=== PATIENT | female | born 1945 | race African-American/Black ===

== ENCOUNTER 2024-06-19 09:45 | Emergency (ER) | payer OTHER ==
[2024-06-19 10:12] VITALS: BMI 25.0
[2024-06-19 10:52] LABS: BASO % 1.2 % (0-2.0); EOS % 0.9 % (0-4.5); HEMATOCRIT 21.2 % (32.4-45.2); LYMPH % 18.4 % (8-40); MCH 27.4 pg (25.7-33.7); MCHC 33.2 g/dl (32.0-36.0); MEAN CELL VOLUME 82.5 fl (80-96); MEAN PLT VOLUME 6.1 fl (7.5-11.1); MONO % 15.3 % (3.8-10.2); NEUT % 64.2 % (42.8-82.8); PLATELET COUNT 606 10^3/uL (134-434); RBC 2.57 M/mm3 (3.60-5.2); WHITE BLOOD COUNT 4.9 K/mm3 (4.0-10.0)
[2024-06-19] MEDS ORDERED: ACETAMINOPHEN INJECTION 100 ML ONE (11:06)
[2024-06-19] MEDS: ACETAMINOPHEN 1000 MG/100 ML BAG IVPB ONE (11:10)
[2024-06-19 11:14] LABS: ACTIVATED PTT 36.6 SECONDS (25.2-36.5); INR 1.12 (0.83-1.09); PROTHROMBIN TIME (PATIENT) 12.2 SEC (9.7-13.0)
[2024-06-19 11:44] LABS: POTASSIUM 4.1 mmol/L (3.5-5.1)
[2024-06-19 11:48] LABS: ALBUMIN 2.9 g/dl (3.4-5.0); CALCIUM 9.6 mg/dL (8.5-10.1)
[2024-06-19 11:52] LABS: CREATININE 0.7 mg/dL (0.55-1.3)
[2024-06-19 11:53] LABS: BILIRUBIN,TOTAL 0.7 mg/dL (0.2-1); TOT PROT 6.9 g/dl (6.4-8.2)
[2024-06-19] MEDS ORDERED: MORPHINE SULFATE 2 MG/ML SYRINGE ONE ×2 (12:56→17:53)
[2024-06-19] MEDS: morphine SULFATE 4 MG/ML VIAL IVPUSH ONE ×2 (13:02→17:59)
[2024-06-19 18:40] VITALS: TEMP 97.9
[2024-06-20 02:15] VITALS: BP 125/55; PULSE 74; RESP 18
== END 2024-06-20 02:15 ==
LOC: JER 09:45
PROC: 3E033NZ Introduction of Analgesics, Hypnotics, Sedatives into Peripheral Vein, Percutaneous Approach (ICD-10-PCS; principal; 2024-06-19)
PROC: 3E033NZ Introduction of Analgesics, Hypnotics, Sedatives into Peripheral Vein, Percutaneous Approach (ICD-10-PCS; 2024-06-19)
PROC: 3E033NZ Introduction of Analgesics, Hypnotics, Sedatives into Peripheral Vein, Percutaneous Approach (ICD-10-PCS; 2024-06-19)
DX: D64.9 Anemia, unspecified (principal)
CPT/HCPCS: 36415; 36430; 73562-TC-LT-FY; 80053; 84484; 85025; 85610; 85651; 85730; 86140; 86850; 86900; 86901; 86922; 93005; 93010; 93971-TC; 96374; 96375; 96376; 99285-25; J0131; P9058